=== PATIENT | female | born 1945 | race Two or more races ===

== ENCOUNTER 2016-10-13 18:14 | Inpatient (IN) | payer MEDICARE, OTHER ==
[~2016-10-13] VITALS: Ht 162.6 cm; Wt 63.9 kg
[2016-10-13] MEDS ORDERED: SODIUM CHLORIDE 0.9% 1,000ML IVBOLUS ONE (19:00)
[2016-10-13 19:08] LABS: HEMOGLOBIN 14.1 g/dL (11.7-16.4)
[2016-10-13 19:17] LABS: BLOOD UREA NITROGEN 23 mg/dL (7-18)
[2016-10-13 19:20] LABS: ASPARTATE AMINO TRANSFERASE 14 U/L (15-37)
[2016-10-13] MEDS ORDERED: LEVO25TA4 PO (19:40)
[2016-10-13] MEDS ORDERED: SIMV40TA3 PO (19:40)
[2016-10-13] MEDS ORDERED: LISI-170 PO (19:40)
[2016-10-13] MEDS ORDERED: LOSA50TA6 PO (19:40)
[2016-10-13] MEDS ORDERED: METF850T2 PO (19:40)
[2016-10-13] MEDS ORDERED: SULF1TAB3 PO (19:40)
[2016-10-13] MEDS ORDERED: SODIUM CHLORIDE 0.9%, 500ML IVBOLUS ONE (20:30)
[2016-10-13] MEDS ORDERED: CEFTRIAXONE PMX 1GM/50ML 50 ML IV ONE (20:30)
[2016-10-13] MEDS ORDERED: CEFTRIAXONE PMX 1GM/50ML 50 ML ONE (20:31)
[2016-10-13 21:23] VITALS: BP 171/89
[2016-10-13] MEDS ORDERED: CEFTRIAXONE PMX 1GM/50ML 50 ML IV SCH (21:30)
[2016-10-13] MEDS ORDERED: OXYcodone IR 5MG TABLET PO PRN (21:30)
[2016-10-13] MEDS ORDERED: ONDANSETRON 2MG/ML, 2ML IVP PRN (21:30)
[2016-10-13] MEDS: LOSARTAN 50MG TABLET PO SCH (21:30)
[2016-10-13] MEDS ORDERED: POLYETHYLENE GLYCOL 17 GM PACKET PO PRN (21:30)
[2016-10-13] MEDS ORDERED: BISACODYL 10 MG SUPP PR PRN (21:30)
[2016-10-13] MEDS: HEPARIN 5,000 UNITS/ML, 1ML SQ SCH (21:30)
[2016-10-13] MEDS: INSULIN REGULAR 100 UNITS/ML, 3ML VIAL SQ-INSULIN SCH (21:30)
[2016-10-13] MEDS ORDERED: KETOROLAC 30 MG/1 ML IVPush PRN (22:00)
[2016-10-13] MEDS: SIMVASTATIN 40 MG TABLET PO SCH (22:31)
[2016-10-13] MEDS: NS + 20MEQ KCL 1,000 ML IV SCH (22:57)
[2016-10-14 01:49] VITALS: BP 173/76
[2016-10-14] MEDS: LEVOTHYROXINE 25 MCG TABLET PO SCH (06:19)
[2016-10-14] MEDS: HEPARIN 5,000 UNITS/ML, 1ML SQ SCH ×3 (06:23→21:41)
[2016-10-14] MEDS: NS + 20MEQ KCL 1,000 ML IV SCH (07:25)
[2016-10-14 08:10] VITALS: BP 158/75
[2016-10-14] MEDS: INSULIN REGULAR 100 UNITS/ML, 3ML VIAL SQ-INSULIN SCH ×4 (08:19→21:00)
[2016-10-14 08:24] LABS: HEMOGLOBIN 12.3 g/dL (11.7-16.4)
[2016-10-14 08:48] LABS: ASPARTATE AMINO TRANSFERASE 10 U/L (15-37); BLOOD UREA NITROGEN 20 mg/dL (7-18)
[2016-10-14] MEDS: SENNA/DOCUSATE TABLET PO SCH (08:59)
[2016-10-14] MEDS: LOSARTAN 50MG TABLET PO SCH ×2 (08:59→21:40)
[2016-10-14] MEDS ORDERED: LEVOTHYROXINE 25 MCG TABLET PO SCH (09:00)
[2016-10-14] MEDS ORDERED: PHENAZOPYRIDINE 100 MG TABLET PO PRN (10:30)
[2016-10-14 14:10] VITALS: BP 174/78
[2016-10-14] MEDS: ACETAMINOPHEN 325 MG TABLET PO PRN ×2 (14:29→22:52)
[2016-10-14 14:30] VITALS: BP 166/65
[2016-10-14 19:20] VITALS: BP 125/68
[2016-10-14] MEDS ORDERED: NS + 20MEQ KCL 1,000 ML IV SCH (21:25)
[2016-10-14] MEDS: SIMVASTATIN 40 MG TABLET PO SCH (21:40)
[2016-10-14] MEDS: CEFTRIAXONE PMX 1GM/50ML 50 ML IV SCH (21:41)
[2016-10-15 01:44] VITALS: BP 144/73
[2016-10-15] MEDS: LEVOTHYROXINE 25 MCG TABLET PO SCH (05:54)
[2016-10-15] MEDS: HEPARIN 5,000 UNITS/ML, 1ML SQ SCH ×2 (05:55→14:00)
[2016-10-15 06:08] LABS: BLOOD UREA NITROGEN 18 mg/dL (7-18)
[2016-10-15 06:51] LABS: HEMOGLOBIN 12.9 g/dL (11.7-16.4)
[2016-10-15] MEDS: INSULIN REGULAR 100 UNITS/ML, 3ML VIAL SQ-INSULIN SCH ×2 (07:00→11:00)
[2016-10-15 07:45] VITALS: BP 176/92
[2016-10-15] MEDS: LOSARTAN 50MG TABLET PO SCH (08:20)
[2016-10-15] MEDS: SENNA/DOCUSATE TABLET PO SCH (08:20)
[2016-10-15] MEDS: CEFTRIAXONE PMX 1GM/50ML 50 ML IV SCH (10:05)
[2016-10-15] MEDS ORDERED: CEFD300C2 PO (12:17)
[2016-10-15] MEDS ORDERED: Phenazopyridine Hcl PO (12:17)
[2016-10-15] MEDS ORDERED: PHEN100T90 PO (12:18)
[2016-10-15 14:00] VITALS: BP 174/93
[2016-10-15 14:51] VITALS: BP 175/85
[2016-10-15 15:59] VITALS: BP 170/96
[2016-10-15 16:11] VITALS: BP 165/90
== END 2016-10-15 16:39 | disposition home or self-care (01) | DRG 871 ==
LOC: ED 19:16 → EDIP 20:34 → 3NE 21:45 → DCLOUNGE 10-15 16:20
PROVIDERS: ADMIT Internal Medicine
PROC: 0T9B70Z Drainage of Bladder with Drainage Device, Via Natural or Artificial Opening (ICD-10-PCS; principal; 2016-10-13)
DX: A41.9 Sepsis, unspecified organism (principal); N17.0 Acute kidney failure with tubular necrosis; E87.1 Hypo-osmolality and hyponatremia; E87.2 Acidosis; N10 Acute pyelonephritis; R17 Unspecified jaundice; B96.20 Unspecified Escherichia coli [E. coli] as the cause of diseases classified elsewhere; E11.65 Type 2 diabetes mellitus with hyperglycemia; E78.5 Hyperlipidemia, unspecified; E86.0 Dehydration; E87.5 Hyperkalemia; E89.0 Postprocedural hypothyroidism; I11.9 Hypertensive heart disease without heart failure; Z85.3 Personal history of malignant neoplasm of breast; Z90.10 Acquired absence of unspecified breast and nipple
CPT/HCPCS: 36415; 80048; 80053; 81001; 82962; 83036; 83735; 84100; 85025; 87040; 87077; 87086; 87186; 96361; 96365; J0696; J1644; J1815; J3480; J7030; J7040

== ENCOUNTER 2017-09-25 21:07 | Emergency (ER) | payer MEDICARE ==
[~2017-09-25] VITALS: Ht 162.6 cm; Wt 59.8 kg
[~2017-09-25 21:07] MED LIST: CEFD300C37 PO; LEVO25TA4 PO; LEVO50TA PO; LISI-170 PO; LOSA50TA6 PO; METF850T2 PO; PHEN100T90 PO; Phenazopyridine Hcl PO; SIMV40TA3 PO; SULF-169 PO
[2017-09-25 21:08] VITALS: BP 154/75
[2017-09-25] MEDS ORDERED: IBUPROFEN 200 MG TABLET ONE (21:56)
[2017-09-25] MEDS ORDERED: METHOCARBAMOL 750 MG TABLET PO ONE (22:00)
[2017-09-25] MEDS ORDERED: IBUPROFEN 200 MG TABLET PO ONE (22:00)
[2017-09-25] MEDS ORDERED: ACETAMINOPHEN 325 MG TABLET PO ONE (22:00)
[2017-09-25] MEDS ORDERED: ACETAMINOPHEN 325 MG TABLET ONE (22:02)
[2017-09-25] MEDS ORDERED: METHOCARBAMOL 750 MG TABLET ONE (22:02)
[2017-09-25 22:11] LABS: MICROSCOPIC AUTO
[2017-09-25 22:17] LABS: CULTURE INDICATED? NO
[2017-09-25 22:18] LABS: BASOPHILS # (AUTO) 0.03 x10^3/uL (0-0.1); BASOPHILS % (AUTO) 0 % (0-1); EOSINOPHILS # (AUTO) 0.24 x10^3/uL (0-0.4); EOSINOPHILS % (AUTO) 3 % (1-7); LYMPHOCYTES # (AUTO) 3.01 x10^3/uL (1-3.4); LYMPHOCYTES % (AUTO) 36 % (22-44); MD NO; MEAN CORPUSCULAR HEMOGLOBIN 30.7 pg (27.0-34.8); MEAN CORPUSCULAR HGB CONC 33.2 g/dL (32.4-35.8); MEAN CORPUSCULAR VOLUME 92.4 fL (80-100); MEAN PLATELET VOLUME 9.5 fL (7.4-10.4); MONOCYTES # (AUTO) 0.63 x10^3/uL (0.2-0.8); MONOCYTES % (AUTO) 8 % (2-9); NEUTROPHILS # (AUTO) 4.44 x10^3/uL (1.8-6.8); NEUTROPHILS % (AUTO) 53 % (42-75); PLATELET COUNT 238 x10^3/uL (130-400); RED BLOOD COUNT 4.42 x10^6/uL (3.82-5.3)
[2017-09-25 22:27] LABS: ALBUMIN 3.8 g/dL (3.4-5.0); ANION GAP 6 mmol/L (5-15); CALCIUM 9.1 mg/dL (8.5-10.1); CHLORIDE 108 mmol/L (98-107)
[2017-09-25 22:31] LABS: ALANINE AMINOTRANSFERASE 27 U/L (12-78); ALKALINE PHOSPHATASE 74 U/L (45-117); BILIRUBIN,TOTAL 0.6 mg/dL (0.2-1.0); CREATININE 0.96 mg/dL (0.55-1.02); TOTAL PROTEIN 8.2 g/dL (6.4-8.2)
== END 2017-09-25 23:11 | disposition home or self-care (01) ==
LOC: ED 22:55
DX: S39.012A Strain of muscle, fascia and tendon of lower back, initial encounter (principal); I10 Essential (primary) hypertension; E11.9 Type 2 diabetes mellitus without complications; E78.5 Hyperlipidemia, unspecified; Z86.73 Personal history of transient ischemic attack (TIA), and cerebral infarction without residual deficits; Z85.3 Personal history of malignant neoplasm of breast; Z90.12 Acquired absence of left breast and nipple; X58.XXXA Exposure to other specified factors, initial encounter; Y93.89 Activity, other specified; Y92.89 Other specified places as the place of occurrence of the external cause; Y99.9 Unspecified external cause status
CPT/HCPCS: 36415; 80053; 81001; 85025; 99284

== ENCOUNTER 2018-05-18 17:59 | Emergency (ER) | payer MEDICARE ==
[~2018-05-18] VITALS: Ht 160 cm; Wt 58.8 kg
[~2018-05-18 17:59] MED LIST changes: -LOSA50TA6 PO; +LOSA50TA7 PO; +METF850T10 PO; -METF850T2 PO
[2018-05-18 18:36] LABS: ALANINE AMINOTRANSFERASE 28 U/L (12-78); ALBUMIN 4.2 g/dL (3.4-5.0); ANION GAP 9 mmol/L (5-15); CALCIUM 9.6 mg/dL (8.5-10.1); CHLORIDE 106 mmol/L (98-107)
[2018-05-18 18:38] LABS: ALKALINE PHOSPHATASE 85 U/L (45-117); BILIRUBIN,TOTAL 0.5 mg/dL (0.2-1.0); CREATININE 0.93 mg/dL (0.55-1.02); TOTAL PROTEIN 8.9 g/dL (6.4-8.2)
[2018-05-18 18:52] LABS: BASOPHILS # (AUTO) 0.04 x10^3/uL (0-0.1); BASOPHILS % (AUTO) 0 % (0-1); EOSINOPHILS # (AUTO) 0.18 x10^3/uL (0-0.4); EOSINOPHILS % (AUTO) 2 % (1-7); LYMPHOCYTES # (AUTO) 2.58 x10^3/uL (1-3.4); LYMPHOCYTES % (AUTO) 24 % (22-44); MD NO; MEAN CORPUSCULAR HEMOGLOBIN 31.3 pg (27.0-34.8); MEAN CORPUSCULAR HGB CONC 33.7 g/dL (32.4-35.8); MEAN CORPUSCULAR VOLUME 93.1 fL (80-100); MEAN PLATELET VOLUME 9.1 fL (7.4-10.4); MONOCYTES # (AUTO) 0.71 x10^3/uL (0.2-0.8); MONOCYTES % (AUTO) 7 % (2-9); NEUTROPHILS # (AUTO) 7.32 x10^3/uL (1.8-6.8); NEUTROPHILS % (AUTO) 68 % (42-75); PLATELET COUNT 260 x10^3/uL (130-400); RED BLOOD COUNT 4.27 x10^6/uL (3.82-5.3); RED CELL DISTRIBUTION WIDTH 13.3 % (9.6-15.2)
[2018-05-18 18:58] LABS: FREE T4 (FREE THYROXINE) 1.54 ng/dL (0.76-1.46)
[2018-05-18] MEDS ORDERED: LORazepam 2 MG/ML, 1ML IVPush ONE (20:00)
[2018-05-18] MEDS ORDERED: LORazepam 2 MG/ML, 1ML ONE (20:21)
[2018-05-18] MEDS ORDERED: GADOBUTROL 7.5 MMOL/7.5 ML PFS ONE (20:54)
[2018-05-18 22:04] VITALS: BP 128/68
== END 2018-05-18 22:05 | disposition home or self-care (01) ==
LOC: ED 18:29
DX: R51 Headache (principal); E78.5 Hyperlipidemia, unspecified; I10 Essential (primary) hypertension; E11.9 Type 2 diabetes mellitus without complications
CPT/HCPCS: 36415; 70450; 70553; 80053; 84439; 84443; 84481; 85025; 93005; 96374; 99285; A9585; J2060